=== PATIENT | female | born 1970 | race Caucasian/White ===

== ENCOUNTER 2018-01-30 08:33 | Day surgery (SDC) | payer BC, OTHER ==
[2018-01-30] MEDS ORDERED: LIDOCAINE 2% INJ 100 MG/5 ML SDV (FOR ANES.) As Ordered (08:44)
[2018-01-30] MEDS ORDERED: MIDAZOLAM INJ 2 MG/2 ML VIAL (J2250) As Ordered (08:44)
[2018-01-30] MEDS ORDERED: NEOSTIGMINE 10 MG/10 ML VIAL (J2710) As Ordered (08:44)
[2018-01-30] MEDS ORDERED: fentaNYL 100 MCG/2 ML INJECTION (J3010) As Ordered (08:44)
[2018-01-30] MEDS ORDERED: PROPOFOL 200 MG/20 ML VIAL As Ordered (08:44)
[2018-01-30] MEDS ORDERED: ONDANSETRON 4MG/2ML VIAL (J2405) As Ordered (08:44)
[2018-01-30] MEDS ORDERED: GLYCOPYRROLATE INJ 0.2 MG/ML 2 ML VIAL As Ordered (08:44)
[2018-01-30] MEDS ORDERED: HYDROmorphone HCL 2 MG/ML 1ML VIAL (J1170) As Ordered (08:44)
[2018-01-30] MEDS ORDERED: ROCURONIUM BROMIDE 50 MG/5 ML VIAL As Ordered (08:44)
[2018-01-30] MEDS ORDERED: dexameTHASONE 4 MG/ML 1ML VIAL (J1100) As Ordered (08:44)
[2018-01-30] MEDS ORDERED: KETOROLAC 60 MG/2 ML VIAL (J1885) As Ordered (08:44)
[2018-01-30] MEDS: CelecoXIB 400 MG CAP PO (09:26)
[2018-01-30] MEDS: LR 1,000 ML IV ×2 (09:27→13:45)
[2018-01-30] MEDS: GABAPENTIN 300 MG CAP PO ×3 (09:27→19:32)
[2018-01-30] MEDS: PERCOCET 5MG/325MG TAB PO ×4 (09:27→23:52)
[2018-01-30] MEDS ORDERED: SCOPOLAMINE 1MG TRANSDERMAL PATCH As Ordered (09:54)
[2018-01-30] MEDS: SCOPOLAMINE 1MG TRANSDERMAL PATCH TOP (09:59)
[2018-01-30] MEDS ORDERED: ceFAZolin 2 GM/D5W 50 ML IV BAG (J0690 PER 500MG) As Ordered (10:29)
[2018-01-30] MEDS ORDERED: ePHEDrine SULFATE 25 MG/5 ML(5MG/ML) SYRINGE As Ordered (11:14)
[2018-01-30] MEDS: BUPIVACAINE/EPIN 0.5% 30 ML VIAL As Ordered (11:16)
[2018-01-30] MEDS: BACITRACIN PWD 50,000 UNITS VIAL As Ordered (11:16)
[2018-01-30] MEDS: BUPIVACAINE LIPOSOME/PF 1.3% 20 ML VIAL (13.3MG/ML)(EXPAREL) As Ordered (12:44)
[2018-01-30] MEDS: BUPIVACAINE HCL 0.25% 30 ML VIAL As Ordered (12:46)
[2018-01-30] MEDS ORDERED: CYCLOBENZAPRINE 10 MG TAB PO (13:45)
[2018-01-30] MEDS: D5W/LR 1,000 ML IV ×2 (13:45→22:49)
[2018-01-30] MEDS ORDERED: fentaNYL 100 MCG/2 ML INJECTION (J3010) IV (13:45)
[2018-01-30] MEDS ORDERED: HYDROMORPHONE HCL 0.5 MG/ 0.5 ML SYRINGE (J1170 PER 1) IV (13:45)
[2018-01-30] MEDS ORDERED: PERCOCET 5MG/325MG TAB PO (13:45)
[2018-01-30] MEDS: ONDANSETRON 4MG/2ML VIAL (J2405) IV (13:59)
[2018-01-30] MEDS: CelecoXIB (CeleBREX) 100 MG CAP PO (19:32)
[2018-01-31] MEDS: PERCOCET 5MG/325MG TAB PO ×2 (03:48→09:22)
[2018-01-31] MEDS: CelecoXIB (CeleBREX) 100 MG CAP PO (09:19)
[2018-01-31] MEDS: METAMUCIL (PSYLLIUM) PACKET PO (09:19)
[2018-01-31] MEDS: GABAPENTIN 300 MG CAP PO (09:19)
[2018-01-31] MEDS: D5W/LR 1,000 ML IV (09:45)
== END 2018-01-31 10:10 | disposition home or self-care (01) ==
LOC: M SDC 01-31 10:10 → M MS5PR 15:45
DX: M51.27 Other intervertebral disc displacement, lumbosacral region (principal); R42 Dizziness and giddiness; Z88.8 Allergy status to other drugs, medicaments and biological substances; Z72.0 Tobacco use; Z90.710 Acquired absence of both cervix and uterus; Z98.51 Tubal ligation status
CPT/HCPCS: 63030

== ENCOUNTER → 2018-05-24 | Outpatient (REF) | payer OTHER ==
[~2018-05-24] MED LIST: CRAN1TAB PO; IBUP200C25 PO
[2018-05-24 16:43] LABS: INR 0.94; PROTHROMBIN TIME 12.7 SECONDS (12.1-14.4)
== END ==
LOC: M LABDRAW1 15:57
PROVIDERS: ATTEND Physician Assistant
DX: Z01.812 Encounter for preprocedural laboratory examination (principal)

== ENCOUNTER → 2018-12-30 | Outpatient (REF) | payer OTHER ==
[~2018-12-30] MED LIST changes: +CELE100C PO; +CYMB1CAP5 PO; +HYDR-3713 PO; +MEDR32TA PO; +MELO15TA28 PO; +MULTCAP PO; +ZANT150T40 PO
[2018-12-30 15:59] LABS: PLATELET COUNT, AUTOMATED 318 10^3/uL (150-450)
[2018-12-30 16:11] LABS: INR 1.01
[2018-12-30 16:12] LABS: PARTIAL THROMBOPLASTIN TIME 34.6 SECONDS (25.0-38.4)
== END ==
LOC: M LABDRAW1 14:13
PROVIDERS: ATTEND Physician Assistant
DX: Z01.812 Encounter for preprocedural laboratory examination (principal); M47.27 Other spondylosis with radiculopathy, lumbosacral region

== ENCOUNTER 2019-04-07 13:01 | Day surgery (SDC) | payer BC, OTHER ==
--- NOTE | 2019-04-03 13:56 | HPE ---
DATE OF ADMISSION: 04/07/2019 HISTORY OF PRESENT ILLNESS: This is a 49-year-old female with continuing low back discomfort and left lower extremity radicular pain. She has consented for lumbar unilateral laminectomy at L4-5 with exploration of spinal stenosis and lateral recess decompression, actually bilaterally from the incision because of the stenosis appreciated bilaterally on MRI. Her MRI is indicative of the above findings. She is denying any medical issues. ALLERGIES: - SOMA - PERCOCET - IVP DYE MEDICATIONS: Includes Celebrex 100 mg, meloxicam 15 mg, Cymbalta 30 mg, Zantac maximum strength 150 mg, Medrol 32 mg, Benadryl 25 mg, multivitamin adult. MEDICAL PROBLEM LIST: 1. Lumbar stenosis and left lower extremity radiculopathy. 2. Active smoker. 3. Some GI upset. PAST SURGICAL HISTORY: 1. Cholecystectomy. 2. Appendectomy. 3. Cervical diskectomy. 4. Total hysterectomy. 5. Tonsillectomy. 6. Ovarian cystectomy. 7. Right arm surgery. FAMILY HISTORY: Noncontributory on the father's side. Mother - hypertension. SOCIAL HISTORY: Current smoker every day. Denies ethanol intake or illicit drugs. REVIEW OF SYSTEMS: She denies chest pain, shortness of breath, dyspnea on exertion, fever, chills, malaise, upper respiratory or urinary tract symptoms. LABORATORY FINDINGS: Were reviewed as ordered through [facility]. Blood type B+. Antibody screen negative. Hemoglobin 13.6. There is no other information that I have on hand today, including BMP. If that is updated, it will be dictated. PHYSICAL EXAMINATION: Height 69.75 inches, weight 201.8, temperature 97.7, blood pressure (BP) 122/90, pulse 86, respirations 17. This is a pleasant well-developed, well-nourished overweight, 49-year-old female in no acute distress. Alert and oriented times three. Mood and affect are appropriate. She is ambulating without overt antalgia, assistance or favoring. Normocephalic. Neck supple. Negative jugular venous distention (JVD) or bruits noted. Old healed anterior transverse cervical surgery scar site. Chest rises symmetrically. Lungs clear to auscultation. Regular rate and rhythm. Bowel sounds soft, nontender times four, no mass. Left straight leg raise positive for pain. Otherwise, the bilateral lower extremities are benign, noninfectious looking skin, with no defects, and nontender. IMPRESSION: Chronic symptomatic lumbar back pain with left lower extremity radiculopathy, failure, for diskectomy to relieve symptoms, which could be attributed to moderate spinal stenosis at L4-5 including lateral recess. 2. The patient is consented for a lumbar L4-5 unilateral laminectomy to explore spinal stenosis, decompress lateral recess, bilaterally from incision secondary to stenosis appreciated on MRI. 3. No medical changes since our last meeting. 4. On-call to OR, 2 grams IV Kefzol in OR. SCD and TEDS in OR. MTDD
[~2019-04-07] VITALS: Ht 180.3 cm; Wt 92.9 kg
[~2019-04-07 13:01] MED LIST changes: +CelecoXIB 400 MG CAP PO ONE; +GABAPENTIN 300 MG CAP PO ONE; -HYDR-3713 PO; +LR 1,000 ML IV ONE; +PERCOCET 5MG/325MG TAB PO ONE; +ceFAZolin SOD 2 GM in IV 1 EA IV ONE
[2019-04-07] MEDS ORDERED: NORCO, ANEXSIA 5/325MG TABLET (HYDROcodone/ACETAMINOPHEN) As Ordered ONE (17:20)
[2019-04-07] MEDS ORDERED: ROCURONIUM BROMIDE 50 MG/5 ML VIAL As Ordered ONE (17:21)
[2019-04-07] MEDS ORDERED: ONDANSETRON 4MG/2ML VIAL (J2405) As Ordered ONE (17:21)
[2019-04-07] MEDS ORDERED: fentaNYL 250 MCG/5 ML INJECTION (J3010) As Ordered ONE (17:21)
[2019-04-07] MEDS ORDERED: MIDAZOLAM INJ 2 MG/2 ML VIAL (J2250) As Ordered ONE (17:21)
[2019-04-07] MEDS ORDERED: propofoL 200 MG/20 ML VIAL As Ordered ONE (17:21)
[2019-04-07] MEDS ORDERED: dexameTHASONE 4 MG/ML 1ML VIAL (J1100) As Ordered ONE (17:21)
[2019-04-07] MEDS ORDERED: LIDOCAINE 2% INJ 100 MG/5 ML SDV (FOR ANES.) As Ordered ONE ×3 (17:21→19:09)
[2019-04-07] MEDS ORDERED: METOCLOPRAMIDE INJ 10MG/2ML VIAL (J2765) As Ordered ONE (17:21)
[2019-04-07] MEDS ORDERED: SUGAMMADEX SODIUM 500 MG/5 ML VIAL (BRIDION) As Ordered ONE (17:21)
[2019-04-07] MEDS ORDERED: NORCO, ANEXSIA 5/325MG TABLET (HYDROcodone/ACETAMINOPHEN) PO ONE (17:30)
[2019-04-07] MEDS ORDERED: BUPIVACAINE HCL 0.25% 30 ML VIAL As Ordered ONE (17:43)
[2019-04-07] MEDS ORDERED: BACITRACIN PWD 50,000 UNITS VIAL As Ordered ONE (17:43)
[2019-04-07] MEDS ORDERED: THROMBIN SOLN 20,000 UNITS KIT As Ordered ONE (17:43)
[2019-04-07] MEDS ORDERED: BUPIVACAINE/EPIN 0.25% 30 ML VIAL As Ordered ONE (17:49)
[2019-04-07] MEDS ORDERED: DESFLURANE 240 ML INHALANT As Ordered ONE (18:01)
[2019-04-07] MEDS ORDERED: BUPIVACAINE LIPOSOME/PF 1.3% 20ML VIAL (13.3MG/ML)(EXPAREL)(C9290 PER1MG) As Ordered ONE (18:02)
[2019-04-07] MEDS ORDERED: BUPIVACAINE HCL 0.5% 10 ML VIAL As Ordered ONE (18:02)
[2019-04-07] MEDS ORDERED: LACRILUBE (AKWA TEARS) OPHTH OINT 3.5 GM As Ordered ONE (18:04)
[2019-04-07] MEDS ORDERED: diphenhydrAMINE INJ 50MG/ML VIAL (J1200) As Ordered ONE (18:39)
[2019-04-07] MEDS ORDERED: KETAMINE HCL 200 MG/20 ML VIAL As Ordered ONE (19:22)
[2019-04-07] MEDS ORDERED: ONDANSETRON 4MG/2ML VIAL (J2405) IV PRN (22:00)
[2019-04-07] MEDS ORDERED: MORPHINE 2 MG/ML 1ML VIAL (J2270) IV PRN (22:00)
[2019-04-07] MEDS ORDERED: NORCO, ANEXSIA 5/325MG TABLET (HYDROcodone/ACETAMINOPHEN) PO PRN ×3 (22:00)
[2019-04-07] MEDS ORDERED: fentaNYL 100 MCG/2 ML INJECTION (J3010) IV PRN (22:00)
[2019-04-07] MEDS ORDERED: LR 1,000 ML IV SCH ×2 (22:00)
[2019-04-07 22:33] VITALS: BP 104/67
[2019-04-07] MEDS: METAMUCIL (PSYLLIUM) PACKET PO SCH (22:54)
[2019-04-07] MEDS ORDERED: HYDROMORPHONE HCL 0.5 MG/ 0.5 ML SYRINGE (J1170 PER 1) IV PRN (23:00)
[2019-04-07 23:05] VITALS: BP 105/67
[2019-04-07 23:55] VITALS: BP 105/65
[2019-04-08 00:52] VITALS: BP 104/64
--- NOTE | 2019-04-08 01:33 | REP ---
Clinical: Laminectomy. Technique: Portable prone intraoperative view of the lumbar spine. Findings: Lumbar spine demonstrates normal alignment and lordosis. Probe identified via posterior approach at the L4-5 interspace. Impression: Probe at the posterior L4-5 interspace. Electronically Signed by Dax Stokes MD 04/08/2019 01:24 A
[2019-04-08 02:13] VITALS: BP 101/61
[2019-04-08 03:04] VITALS: BP 100/59
[2019-04-08 05:54] VITALS: BP 105/63
[2019-04-08] MEDS ORDERED: HYDR-3713 PO (08:40)
[2019-04-08] MEDS: METAMUCIL (PSYLLIUM) PACKET PO SCH (08:54)
[2019-04-08] MEDS ORDERED: CelecoXIB (CeleBREX) 100 MG CAP PO ONE (09:00)
[2019-04-08] MEDS ORDERED: DULoxetine 30 MG CAP (CYMBALTA) PO SCH (09:00)
--- NOTE | 2019-04-09 08:48 | RO ---
DATE OF PROCEDURE: 04/07/2019 PREOPERATIVE DIAGNOSIS: Left lateral recess spinal stenosis at L4-L5 secondary to facet arthropathy and ligamentum flavum hypertrophy. POSTOPERATIVE DIAGNOSIS: Left lateral recess spinal stenosis at L4-L5 secondary to facet arthropathy and ligamentum flavum hypertrophy. PROCEDURE: Left unilateral laminectomy at the L4 level, left unilateral laminectomy of the L5 level, additional level. SURGEON: Dr. Kurt Ge. CORPORATE PHYSICAL SECURITY SUPERVISOR: Humble Rivera PA-C ANESTHESIA: General endotracheal. ESTIMATED BLOOD LOSS: Less than 100 mL, replaced with crystalloid. COMPLICATIONS: No complications. INDICATIONS: Discomfort radiating down the left lower extremity. History of a right L5-S1 decompression/discectomy with incomplete relief. History of relief with some epidurals and an MRI that reflects some lateral recess spinal stenosis at the L4-5 level on the left side, primarily more than the right side. The patient elects for operative intervention for ongoing symptoms. Consent reviewed in detail including a carlos discussion of pathology involved, procedure proposed, alternatives including doing nothing and risks including but not limited to pain, failure, infection, bleeding blood loss, incomplete relief of symptoms, need for additional surgery, nerve injury and other problems. The patient agrees to proceed. DESCRIPTION OF PROCEDURE: Identified in the holding area, site and side verified, brought to the operating room. Once anesthesia was administered, she was positioned on the Taz frame for exposure of the lumbar spine. Axillary rolls were utilized, knees were slightly flexed. She was sterilely prepped and draped in the usual fashion. Next, time-out was accomplished. Next, I approached the patient from the left side. My certified registered dental assistant approached from the right side. My assistants during this case included the medical student in the observational capacity as well as Mr. Rivera physician certified registered dental assistant in a utility capacity. Medical student was Joselyn Nunez. Next the incision was outlined with a marking pen based on the previous incision. The line of the incision was infiltrated with 0.25% Marcaine with epinephrine by Mr. Rivera. Next, I made the incision using a 10-blade knife developed down through skin and subcuticular tissues to the posterior lumbar fascia. Some scarring was encountered. I used 3.5 loupe magnification headlamp. Next, I reflected the posterior lumbar fascia off of the spinous process of the L4 and L5 and continued the dissection down the lamina of 4. Next, at the lamina of 4, I utilized the high-speed drill to drill a divot in the lamina of 4 and then we obtained a cross-table lateral x-ray to verify our level. Next. I further develop the dissection superiorly exposing more the lamina of 4 for further decompression as well as inferiorly to the scar tissue at the L5 interspace. Next, once this was accomplished my loupes and headlamp were removed. The operating microscope was moved in for remaining portion of the procedure as well as shadow line retractor. Next the operating microscope allowed safe use of the high-speed bur. The high-speed bur was utilized to implement a left unilateral laminectomy at the L4 levels extending superiorly to the bare area of L4 undercutting the L4 spinous process, undercutting the superior aspect the L5 spinous process, extending inferiorly the bare area of 5 and protecting specifically the L4-5 facet complex and moved about one bur width of the L4-5 facet complex including the inferior facet of 4 and the superior facet of 5. I elevated ligamentum flavum with pituitaries curved curets as well as Kerrisons, removed it and decompressed the thecal sac. There seemed to be quite significant ligamentum flavum hypertrophy to the left of midline around the facet complex more actually than appeared on the MRI and this was debrided using #2 Kerrisons and curets as well as the curved Kerrisons. Foraminotomy was accomplished. Next, I also removed some ligamentum flavum across the midline from the contralateral side but the compression there did not seem to be nearly as severe. I probed the neural foramina bilaterally using a Howell-James. Next we utilized irrigation, inspected for bleeding or leaks and appreciated no significant bleeding. No cerebrospinal fluid (CSF) leak. Next, retractors were removed posterior lumbar fascia was reapproximated with interrupted stitch, deep dermis with interrupted stitch. The pernio dressing was applied on skin. The patient was log-rolled to the hospital bed, extubated and moved to the recovery room in good condition. For further details please refer to medical record.
== END 2019-04-08 10:25 | disposition home or self-care (01) ==
LOC: M SDC 13:01 → EDSTATUS 16:00 → M MS5PR 22:35 → M SDC 04-08 10:25
PROVIDERS: ATTEND Orthopaedic Surgery
DX: M48.061 Spinal stenosis, lumbar region without neurogenic claudication (principal); M54.16 Radiculopathy, lumbar region; F41.9 Anxiety disorder, unspecified; F17.218 Nicotine dependence, cigarettes, with other nicotine-induced disorders; Z88.5 Allergy status to narcotic agent; Z91.041 Radiographic dye allergy status
CPT/HCPCS: 36415; 63047; 63048; 72100; 86850; 86900; 86901; C9290; J0690; J1100; J1200; J2250; J2405; J2765; J3010